=== PATIENT | female | born 1935 | race Caucasian/White ===

== ENCOUNTER 2017-07-19 12:13 | Inpatient (IN) | payer MEDICARE, MEDICAID ==
[~2017-07-19] VITALS: Ht 170.2 cm; Wt 79.5 kg
[~2017-07-19 12:13] MED LIST: furosemide 40mg/4ml inj IV SCH
[2017-07-19] MEDS ORDERED: albuterol 2.5 MG/3 ML nebule NEB ONE (12:50)
[2017-07-19 12:59] LABS: BASOPHILS % (AUTO) 0 % (0-1); EOSINOPHILS # (AUTO) 0.1 X10'3 (0-0.9); EOSINOPHILS % (AUTO) 0.6 % (0-6); HEMATOCRIT 30.7 % (35.0-45.0); HEMOGLOBIN 10.6 g/dl (12.0-16.0); LYMPHOCYTES # (AUTO) 0.7 X10'3 (1.1-4.8); LYMPHOCYTES % (AUTO) 4.4 % (21-51); MEAN CORPUSCULAR HGB CONC 34.4 % (33.0-36.5); MEAN CORPUSCULAR VOLUME 87.1 FL (78-98); MEAN PLATELET VOLUME 7.9 FL (7.4-10.4); MONOCYTES # (AUTO) 0.9 X10'3 (0-0.9); MONOCYTES % (AUTO) 5.4 % (2-12); NEUTROPHILS % (AUTO) 89.6 % (42-75); PLATELET COUNT 304 X10'3 (140-440); RED BLOOD COUNT 3.53 X10'6 (4.20-5.60); RED CELL DISTRIBUTION WIDTH 14.1 % (11.5-14.5); WHITE BLOOD COUNT 16.8 X10'3 (4.5-11.0)
[2017-07-19 13:15] LABS: ALANINE AMINOTRANSFERASE 23 U/L (12-78); ALBUMIN 2.7 G/DL (3.4-5.0); ALBUMIN/GLOBULIN RATIO 0.6 (1.1-1.5); ALKALINE PHOSPHATASE 336 IU/L (46-116); ANION GAP 13 (8-16); ASPARTATE AMINO TRANSFERASE 41 U/L (10-37); BILIRUBIN,TOTAL 1.5 MG/DL (0.1-1.0); BLOOD UREA NITROGEN 36 MG/DL (7-18); BUN/CREATININE RATIO 24.3 (6.6-38.0); CALCIUM 9.6 MG/DL (8.5-10.1); CHLORIDE 101 MMOL/L (99-107); CREATININE 1.48 MG/DL (0.40-0.90); GLUCOSE 114 MG/DL (70-104); POTASSIUM 4.6 MMOL/L (3.5-5.1); SODIUM 138 MMOL/L (135-145); TOTAL CARBON DIOXIDE 23.9 MMOL/L (24-32); TOTAL PROTEIN 7.5 G/DL (6.4-8.2); eGFR 34 ML/MIN
[2017-07-19] MEDS ORDERED: cefepime 1GM/NS ADD-VANTAGE 100 ML IV ONE (13:20)
[2017-07-19] MEDS ORDERED: azithromycin/NS 500mg/250ml 250 ML IV ONE (13:20)
[2017-07-19] MEDS ORDERED: aspirin 81mg tab.chew PO ONE (13:35)
[2017-07-19] MEDS ORDERED: acetaminophen 325mg tablet PO PRN (13:45)
[2017-07-19] MEDS ORDERED: mag hydrox/Alum hydrox/simeth 30ml oral suspension PO PRN (13:45)
[2017-07-19] MEDS ORDERED: magnesium hydroxide 30ml (MOM) UD suspension PO PRN (13:45)
[2017-07-19] MEDS ORDERED: ondansetron/PF 4mg/2ml inj IV PRN (13:45)
[2017-07-19 13:47] LABS: MAGNESIUM 2.2 MG/DL (1.5-2.4)
[2017-07-19 14:08] LABS: PARTIAL THROMBOPLASTIN TIME 29 SECONDS (22-32); PROTHROMBIN TIME 10.5 SECONDS (9.0-12.0)
[2017-07-19] MEDS ORDERED: HYDR-569 PO (14:17)
[2017-07-19] MEDS ORDERED: DULR RC (14:17)
[2017-07-19] MEDS ORDERED: LOPE-155 PO (14:17)
[2017-07-19] MEDS ORDERED: CHOL20002 PO (14:17)
[2017-07-19] MEDS ORDERED: TRAM50TA2 PO (14:17)
[2017-07-19] MEDS ORDERED: NA P230E PR (14:17)
[2017-07-19] MEDS ORDERED: SENN-161 PO (14:17)
[2017-07-19] MEDS ORDERED: MAGN400O6 PO (14:17)
[2017-07-19] MEDS ORDERED: CARV3.12 PO (14:17)
[2017-07-19] MEDS ORDERED: NITR0.4T51 SL (14:17)
[2017-07-19] MEDS ORDERED: AMLO10TA PO (14:17)
[2017-07-19] MEDS ORDERED: LIDO700A32 TD (14:17)
[2017-07-19] MEDS ORDERED: DOCU-28 PO (14:17)
[2017-07-19] MEDS ORDERED: MAG-54 PO (14:17)
[2017-07-19] MEDS ORDERED: ACET325T55 PO (14:17)
[2017-07-19] MEDS ORDERED: LOPE-144 PO (14:17)
[2017-07-19] MEDS ORDERED: LISI-600 PO (14:17)
[2017-07-19] MEDS ORDERED: MELA3TAB11 PO (14:17)
[2017-07-19] MEDS ORDERED: IPRA3AMP IH (14:17)
[2017-07-19 16:15] VITALS: BP 116/41
[2017-07-19] MEDS ORDERED: enoxaparin 100mg/ml syringe SUBCUT SCH (16:15)
[2017-07-19] MEDS ORDERED: enoxaparin 100mg/ml syringe SUBCUT ONE (16:15)
[2017-07-19] MEDS ORDERED: furosemide 10 MG/1 ML 10ml inj IV ONE (16:40)
[2017-07-19 18:00] VITALS: BP 116/41
[2017-07-19] MEDS: ipratropium/albuterol 3ml nebule NEB SCH ×2 (19:00→23:00)
[2017-07-19] MEDS ORDERED: enoxaparin 80mg/0.8ml syringe SUBCUT SCH (19:00)
[2017-07-19] MEDS ORDERED: enoxaparin 80mg/0.8ml syringe SUBCUT ONE (19:05)
[2017-07-19] MEDS: methylPREDNISolone sod succ 125mg/2ml vial IV SCH ×2 (19:16→23:34)
[2017-07-19] MEDS: CEFEPIME 2 GM in NS 100ml IV.SOLN 100 ML IV SCH (20:56)
[2017-07-20] MEDS ORDERED: ipratropium/albuterol 3ml nebule NEB PRN (02:45)
[2017-07-20 06:26] LABS: TRIGLYCERIDES 138 MG/DL (20-135)
[2017-07-20 06:46] LABS: CHOLESTEROL 175 MG/DL (0-200); HDL CHOLESTEROL 31 MG/DL (35-60)
[2017-07-20 06:47] LABS: CHOL/HDL RATIO 5.6 (0.00-4.99); LDL CHOLESTEROL 112 MG/DL (50-100)
[2017-07-20 07:00] VITALS: BP 123/43
[2017-07-20] MEDS: methylPREDNISolone sod succ 125mg/2ml vial IV SCH ×2 (07:00→11:00)
[2017-07-20] MEDS: lactobacillus rhamnosus 10,000 MMU CELLS/CAPSULE PO SCH ×2 (08:00→20:00)
[2017-07-20] MEDS: CEFEPIME 2 GM in NS 100ml IV.SOLN 100 ML IV SCH (08:00)
[2017-07-20] MEDS ORDERED: furosemide 40mg/4ml inj IV SCH (08:00)
[2017-07-20 08:20] LABS: BASOPHILS % (AUTO) 0 % (0-1); EOSINOPHILS % (AUTO) 0 % (0-6); HEMATOCRIT 29.6 % (35.0-45.0); HEMOGLOBIN 10.1 g/dl (12.0-16.0); LYMPHOCYTES # (AUTO) 0.4 X10'3 (1.1-4.8); LYMPHOCYTES % (AUTO) 2.9 % (21-51); MEAN CORPUSCULAR HEMOGLOBIN 29.9 PG (27.0-31.0); MEAN CORPUSCULAR HGB CONC 34.2 % (33.0-36.5); MEAN CORPUSCULAR VOLUME 87.6 FL (78-98); MEAN PLATELET VOLUME 7.9 FL (7.4-10.4); MONOCYTES # (AUTO) 0.1 X10'3 (0-0.9); MONOCYTES % (AUTO) 0.8 % (2-12); NEUTROPHILS # (AUTO) 14.6 X10'3 (1.8-7.7); NEUTROPHILS % (AUTO) 96.3 % (42-75); PLATELET COUNT 313 X10'3 (140-440); RED BLOOD COUNT 3.38 X10'6 (4.20-5.60); RED CELL DISTRIBUTION WIDTH 13.9 % (11.5-14.5); WHITE BLOOD COUNT 15.2 X10'3 (4.5-11.0)
[2017-07-20 08:34] LABS: ALBUMIN 2.5 G/DL (3.4-5.0); ANION GAP 15 (8-16); BLOOD UREA NITROGEN 45 MG/DL (7-18); BUN/CREATININE RATIO 36.9 (6.6-38.0); CALCIUM 9.7 MG/DL (8.5-10.1); CHLORIDE 103 MMOL/L (99-107); CREATININE 1.22 MG/DL (0.40-0.90); GLUCOSE 146 MG/DL (70-104); POTASSIUM 3.9 MMOL/L (3.5-5.1); SODIUM 141 MMOL/L (135-145); eGFR 42 ML/MIN
[2017-07-20] MEDS: aspirin 81mg tablet.DR PO SCH (10:00)
[2017-07-20] MEDS: carVEDilol 3.125mg tablet PO SCH ×2 (10:00→20:00)
[2017-07-20] MEDS: atorvastatin 20mg tablet PO SCH (10:00)
[2017-07-20] MEDS: clopidogrel 75mg tablet PO SCH (10:45)
[2017-07-20] MEDS: furosemide 40mg tablet PO SCH (14:10)
[2017-07-20] MEDS ORDERED: levoFLOXACIN 500mg tablet PO ONE (14:10)
[2017-07-20] MEDS: enoxaparin 80mg/0.8ml syringe SUBCUT SCH (20:00)
[2017-07-21] MEDS: carVEDilol 3.125mg tablet PO SCH ×2 (08:00→20:00)
[2017-07-21] MEDS: atorvastatin 20mg tablet PO SCH (08:00)
[2017-07-21] MEDS: enoxaparin 80mg/0.8ml syringe SUBCUT SCH ×2 (08:00→20:00)
[2017-07-21] MEDS: clopidogrel 75mg tablet PO SCH (08:00)
[2017-07-21] MEDS: lactobacillus rhamnosus 10,000 MMU CELLS/CAPSULE PO SCH ×2 (08:00→20:00)
[2017-07-21] MEDS: furosemide 40mg tablet PO SCH (08:00)
[2017-07-21] MEDS: aspirin 81mg tablet.DR PO SCH (08:22)
[2017-07-21] MEDS: levoFLOXACIN 250mg tablet PO SCH (10:20)
[2017-07-21] MEDS: HYDROcodone/acetaminophen 5mg/325mg tablet PO PRN ×2 (19:52→23:59)
[2017-07-21 20:06] VITALS: BP 133/48
[2017-07-21 22:30] VITALS: BP 140/58
[2017-07-22 06:51] VITALS: BP 126/51
[2017-07-22] MEDS: enoxaparin 80mg/0.8ml syringe SUBCUT SCH ×2 (08:00→20:00)
[2017-07-22] MEDS: lactobacillus rhamnosus 10,000 MMU CELLS/CAPSULE PO SCH ×2 (08:00→20:00)
[2017-07-22] MEDS: carVEDilol 3.125mg tablet PO SCH ×2 (08:00→20:00)
[2017-07-22] MEDS: furosemide 40mg tablet PO SCH (08:00)
[2017-07-22] MEDS: atorvastatin 20mg tablet PO SCH (08:00)
[2017-07-22] MEDS: clopidogrel 75mg tablet PO SCH (08:00)
[2017-07-22] MEDS: aspirin 81mg tablet.DR PO SCH (08:30)
[2017-07-22 10:00] VITALS: BP 119/46
[2017-07-22] MEDS: HYDROcodone/acetaminophen 5mg/325mg tablet PO PRN ×2 (10:48→23:39)
[2017-07-22] MEDS: levoFLOXACIN 250mg tablet PO SCH (10:51)
[2017-07-22 18:00] VITALS: BP 138/53
[2017-07-22 22:05] VITALS: BP 126/46
[2017-07-23 06:00] VITALS: BP 140/46
[2017-07-23] MEDS: carVEDilol 3.125mg tablet PO SCH (07:42)
[2017-07-23] MEDS: atorvastatin 20mg tablet PO SCH (08:00)
[2017-07-23] MEDS: enoxaparin 80mg/0.8ml syringe SUBCUT SCH (08:00)
[2017-07-23] MEDS: clopidogrel 75mg tablet PO SCH (08:00)
[2017-07-23] MEDS: furosemide 40mg tablet PO SCH (08:00)
[2017-07-23] MEDS: lactobacillus rhamnosus 10,000 MMU CELLS/CAPSULE PO SCH (08:00)
[2017-07-23] MEDS: aspirin 81mg tablet.DR PO SCH (08:24)
[2017-07-23 10:00] VITALS: BP 113/45
[2017-07-23] MEDS: levoFLOXACIN 250mg tablet PO SCH (11:00)
== END 2017-07-23 17:48 | DRG 280 ==
LOC: ER 12:14 → ED HOLD 13:43 → ORTHO 4S 17:09
PROVIDERS: ADMIT Internal Medicine; ATTEND Family Medicine
DX: I21.4 Non-ST elevation (NSTEMI) myocardial infarction (principal); J96.01 Acute respiratory failure with hypoxia; J18.9 Pneumonia, unspecified organism; I13.0 Hypertensive heart and chronic kidney disease with heart failure and stage 1 through stage 4 chronic kidney disease, or unspecified chronic kidney disease; N17.9 Acute kidney failure, unspecified; I50.9 Heart failure, unspecified; L89.329 Pressure ulcer of left buttock, unspecified stage; M54.9 Dorsalgia, unspecified; N18.9 Chronic kidney disease, unspecified; F03.90 Unspecified dementia, unspecified severity, without behavioral disturbance, psychotic disturbance, mood disturbance, and anxiety; Y95 Nosocomial condition; G89.29 Other chronic pain; I25.10 Atherosclerotic heart disease of native coronary artery without angina pectoris; I35.0 Nonrheumatic aortic (valve) stenosis; Z51.5 Encounter for palliative care; Z66 Do not resuscitate; Z79.02 Long term (current) use of antithrombotics/antiplatelets; Z90.710 Acquired absence of both cervix and uterus; Z98.61 Coronary angioplasty status; Z79.899 Other long term (current) drug therapy; Z87.440 Personal history of urinary (tract) infections
CPT/HCPCS: 36415; 71045; 80048; 80053; 80061; 83605; 83735; 83880; 84484; 85025; 85610; 85730; 87040; 87070; 93005; 94640; 94760; 99291; A6212; A6213; J0456; J0692; J1650; J1940; J2930

== ENCOUNTER 2019-06-13 16:07 | Emergency (ER) | payer MEDICARE, MEDICAID ==
[~2019-06-13] VITALS: Ht 172.7 cm; Wt 90.9 kg
[~2019-06-13 16:07] MED LIST changes: +ACET325T55 PO; +DULR RC; +HYDR-4383 PO; +IPRA3AMP31 IH; +LIDO700A32 TD; +LOPE-144 PO; +MAG-54 PO; +MAGN400O6 PO; +MELA3TAB11 PO; +NA P230E PR; +NITR0.4T51 SL; +SENN-263 PO; +TRAM50TA2 PO; -furosemide 40mg/4ml inj IV SCH
[2019-06-13] MEDS ORDERED: vancomycin/NS 1 GM ADD-VANTAGE 250 ML IV ONE (16:25)
[2019-06-13] MEDS ORDERED: normal saline 1000ML IV soln IV ONE (16:25)
[2019-06-13] MEDS ORDERED: piperacillin/tazo 3.375gm/50ml 50 ML IV ONE (16:25)
[2019-06-13] MEDS ORDERED: morphine 4 MG/ML inj SYRINge IV ONE (17:00)
--- NOTE | 2019-06-13 17:20 | NUR ---
PT REFUSING LAB DRAW AND IV START
--- NOTE | 2019-06-13 17:53 | NUR ---
PT REFUSING CARE, MEDS OR DIAGNOSTICS. PT CURRENTLY BEING SEEN BY PROVIDER ANA M DISCUSSING PT WISHES
--- NOTE | 2019-06-13 18:04 | NUR ---
REPORTED OFF TO KEIRY DELEON FROM [facility] AND UPDATED ON PT REFUSAL OF TX AND PTS SON AWARE.
--- NOTE | 2019-06-13 19:04 | NUR ---
PT RESTING COMFORTABLY; NO SIGNS OF DISTRESS OR DISCOMFORT. WILL CONTINUE TO MONITOR.
[2019-06-13 19:55] VITALS: BP 156/93
== END 2019-06-13 19:58 | disposition home or self-care (01) ==
LOC: ER 16:08
DX: I70.201 Unspecified atherosclerosis of native arteries of extremities, right leg (principal); I99.8 Other disorder of circulatory system; I35.0 Nonrheumatic aortic (valve) stenosis; I25.10 Atherosclerotic heart disease of native coronary artery without angina pectoris; G89.29 Other chronic pain; Z95.5 Presence of coronary angioplasty implant and graft; Z90.710 Acquired absence of both cervix and uterus; Z79.899 Other long term (current) drug therapy
CPT/HCPCS: 71045; 93005; 93926; 99291

== ENCOUNTER 2019-06-15 08:19 | Emergency (ER) | payer MEDICARE, MEDICAID ==
[~2019-06-15] VITALS: Ht 165.1 cm; Wt 75.0 kg
[2019-06-15] MEDS ORDERED: haloperidol lactate 5mg/ml inj IM ONE (09:00)
[2019-06-15] MEDS ORDERED: ondansetron 4mg rapidly disintigrating tab PO ONE (09:20)
[2019-06-15] MEDS ORDERED: morphine 4 MG/ML inj SYRINge IM ONE (09:20)
[2019-06-15 10:58] VITALS: BP 130/55
== END 2019-06-15 12:22 | disposition left against medical advice (07) ==
LOC: ER 08:19
DX: I96 Gangrene, not elsewhere classified (principal); M87.078 Idiopathic aseptic necrosis of left toe(s); M79.671 Pain in right foot; F03.90 Unspecified dementia, unspecified severity, without behavioral disturbance, psychotic disturbance, mood disturbance, and anxiety; I25.10 Atherosclerotic heart disease of native coronary artery without angina pectoris; G89.29 Other chronic pain; Z98.61 Coronary angioplasty status; Z90.710 Acquired absence of both cervix and uterus; Z60.2 Problems related to living alone; Z79.899 Other long term (current) drug therapy
CPT/HCPCS: 96372; 99283; J2270